=== PATIENT | male | born 1985 | race Two or more races ===

== ENCOUNTER 2019-01-21 17:32 | Emergency (ER) | payer MEDICAID ==
[~2019-01-21] VITALS: Ht 180.3 cm; Wt 77.1 kg
--- NOTE | 2019-01-21 18:38 | NUR ---
Dr Juarez is at bedside. MSE in progress, pending results & disposition.
[2019-01-21] MEDS ORDERED: CYCLOBENZAPRINE HCL 10 MG TABLET PO ONE (19:00)
[2019-01-21] MEDS ORDERED: MORPHINE SULFATE 4 MG/1 ML DISP.SYRIN IM ONE (19:00)
[2019-01-21] MEDS ORDERED: MORPHINE SULFATE 4 MG/1 ML DISP.SYRIN ONE (19:02)
--- NOTE | 2019-01-21 20:30 | NUR ---
Patient states pain is 2/10. No distress noted. Pain med effective.
--- NOTE | 2019-01-21 20:43 | NUR ---
Patient discharged to home in stable conditon with mother taking patient home. Written and verbal after care instructions given. Patient verbalizes understanding of instructions. Walked out of ER with no distress noted.
[2019-01-21 20:44] VITALS: BP 135/84
== END 2019-01-21 20:45 | disposition home or self-care (01) ==
LOC: ER 17:35
DX: M54.5 Low back pain (principal)
CPT/HCPCS: 96372; 99283; J2270; A4663

== ENCOUNTER 2019-01-24 09:18 | Emergency (ER) | payer MEDICAID ==
[~2019-01-24] VITALS: Ht 180.3 cm; Wt 77.1 kg
[2019-01-24] MEDS ORDERED: OXYC-128 PO (09:32)
[2019-01-24] MEDS ORDERED: HYDROMORPHONE 1 MG/1 ML DISP.SYRIN IM ONE (09:45)
[2019-01-24] MEDS ORDERED: HYDROMORPHONE 1 MG/1 ML DISP.SYRIN ONE (09:49)
--- NOTE | 2019-01-24 09:53 | NUR ---
PT WAS EVALUATED BY DR MILLIGAN. PT WAS D/C'd TO HOME. D/C INSTRUCTIONS GIVEN TO THE PT.
[2019-01-24 09:56] VITALS: BP 136/78
== END 2019-01-24 09:57 | disposition home or self-care (01) ==
LOC: ER 09:18
DX: M54.5 Low back pain (principal); Z79.899 Other long term (current) drug therapy
CPT/HCPCS: 96372; 99283; J1170; A4663